=== PATIENT | male | born 1990 | race American Indian/Alaskan Native ===

== ENCOUNTER 2017-01-28 09:20 | Emergency (ER) | payer OTHER ==
[2017-01-28 09:53] VITALS: BP 121/82
--- NOTE | 2017-01-28 11:42 | Emergency Department Report ---
HPI - General Chief Complaint: Extremity Problem,Nontraumatic Time Seen by Provider: 01/28/17 11:29 - HPI HPI: Patient here said that he woke up this morning with right foot pain located big toe at back and front is still radiating to the bottom of his right foot. She reports that it is swollen and red and pain is 10 out of 10, throbbing and achy . He denies any injury to side. Denies any history of gout or any other medical problems except asthma. She said she came to the emergency room and he did not take any [id number] medication. Denies any fever or chills. Denies any radiation of pain up his right extremity to ankle or leg. Pain is worse with movement and with touch better with resting. ED Past Medical Hx - Past Medical History Previous Medical History?: Yes Hx Asthma: Yes - Surgical History Past Surgical History?: No - Family History Family history: hypertension - Social History Smoking Status: Current Every Day Smoker Substance Use Type: Alcohol - Medications Home Medications: Home Medications Medication Instructions Recorded Confirmed Last Taken Type Bacitracin Zinc Oint 1 applicatio TP TID #1 tube 01/13/15 Unknown Rx Sulfamethoxazole/Trimethoprim 1 each PO BID #14 tablet 01/13/15 Unknown Rx [Bactrim DS TAB] Acetaminophen/Codeine [Tylenol 1 tab PO Q6H PRN #12 tab 07/10/15 Unknown Rx /Codeine # 3 tab] Amoxicillin/K Clav Tab [Augmentin 1 tab PO Q12HR #20 tab 07/10/15 Unknown Rx 875MG TAB] Acetaminophen/Codeine [Tylenol 1 tab PO Q6H PRN 3 Days #12 tab 01/28/17 Unknown Rx /Codeine # 3 tab] Ibuprofen [Motrin 800 MG tab] 800 mg PO Q8HR PRN 5 Days #15 01/28/17 Unknown Rx tablet methylPREDNISolone [Medrol] 4 mg PO QAM 6 Days #1 tab.ds.pk 01/28/17 Unknown Rx ED Review of Systems ROS: Stated complaint: RIGHT FOOT SWOLLEN Other details as noted in HPI Comment: All other systems reviewed and negative Constitutional: no symptoms reported Respiratory: no symptoms reported Cardiovascular: denies: chest pain, palpitations, dyspnea on exertion, edema, syncope, paroxysmal nocturnal dyspnea Gastrointestinal: denies: abdominal pain, nausea, vomiting, diarrhea Musculoskeletal: joint swelling, arthralgia. denies: back pain, myalgia Neurological: denies: headache, weakness, numbness, paresthesias, confusion, abnormal gait, vertigo Physical Exam - Physical Exam Vital Signs: Vital Signs 01/28/17 09:51 Temperature 98.4 F Pulse Rate 77 Respiratory 16 Rate Blood Pressure 121/82 O2 Sat by Pulse 99 Oximetry General: This is a 26-year-old male well-nourished well-developed no acute distress Physical Exam: Head: Normocephalic, atraumatic, no abrasion, no bruising and no contusion. Eyes: Biateral pupils equal and reactive to light, bilateral EOM intact.. Bilateral conjunctival and sclera without injection, normal accommodation. No nystagmus Neck: Supple, No Cervical adenopathy, full range of motion and no C-spine tenderness. Full range of motion. No swelling or tracheal deviation normal reflexes Cardiovascular: S1, S2. Regular rate and rhythm. No murmur. Capillary refill is less then 3 seconds. Lungs: Clear to auscultate bilaterally. No rhonchi, wheezes or rales. No chest wall tenderness. No chest contusion. No bruising to chest. Abdomen: Non-tender to palpate in all quadrants, no guarding or rebound tenderness, positive bowel sounds in all quadrants. No CVA tenderness. No hernia, bruit or mass. No rigidity or distention. Extremities: No clubbing, cyanosis or edema. +2 pulses. No neurovascular compromise. Patient with swelling to right great toe, mild erythema and tenderness to palpate. He is able to move his toes but reports very painful when he moves his right great toe. Swelling is localized to the right great toe. No laceration, abrasion, contusion or ecchymotic area noted to right foot. Skin: Clean, dry and intact. No rash or lesions. Neurological: GCS at 15, Pt is alert and oriented 3 speech is clear period. Bilateral hand continuity coordinator strong and equal. Normal gait. Negative Romberg and no pronator drift. Normal Reflexes. No motor or sensory deficit Back: No vertebral tenderness, no paraspinal tenderness. The bend over and touch his toes without any difficulties. Ambulates without any difficulties. Psych: Normal mood and behavior ED Course Vital Signs 01/28/17 09:51 Temperature 98.4 F Pulse Rate 77 Respiratory 16 Rate Blood Pressure 121/82 O2 Sat by Pulse 99 Oximetry - Reevaluation(s) Reevaluation #1: 01/28/17 12:24 Given Deltasone 60 mg by mouth, Motrin 800 mg by mouth and [place] 5/325 2 tablets emergency room for acute gout flare ED Medical Decision Making - Medical Decision Making ED course: Patient presents to emergency room with right great toe swelling, redness, pain and physical findings patient has been redness swelling and tenderness to right great toe. He has normal pedal pulses and both feet, ankles and legs with normal exam. I discussed the patient that he has gout flare which is a form of arthritis and can be induced by eating certain foods. I explained to him food that he should avoid. This is patient initial gout flare. Based on his diet over 48 hour period, patient had crab legs, beer, red meat and he said he consumes a lot of beer and seafood over the . Patient does have gout that rendered his family. I discussed with him that he needs to follow-up with primary care physician for gout and if he didn't have a primary care physician he can follow up at [facility]. Patient received [place] 5/325 2 tablets, Motrin 800 mg and Deltasone 60 mg when necessary emergency room which helped his pain. Patient discharged home a prescription for prednisone, Motrin and Tylenol 3. Discharged from emergency room with his family member. Critical care attestation.: If time is entered above; I have spent that time in minutes in the direct care of this critically ill patient, excluding procedure time. ED Disposition Clinical Impression: Gouty arthritis of right great toe, Toe pain, right Disposition: DC-01 TO HOME OR SELFCARE Is pt being admited?: No Does the pt Need Aspirin: No Condition: Stable Instructions: Arthralgia (ED), Acute Gouty Arthritis (ED), Low Purine Diet (ED) Additional Instructions: Please follow up with primary care as recommended he do not have a primary care physician follow-up at [facility]. Call to schedule an appointment Increase fluid intake Take medication as prescribed . please do not drive or operate heavy machinery while taking Tylenol 3 as this medication causes drowsiness Further discharge instruction on low purine diet Please keep affected area clean and dry Prescriptions: Acetaminophen/Codeine [Tylenol /Codeine # 3 tab] 1 tab PO Q6H PRN 3 Days #12 tab PRN Reason: Pain , Severe (7-10) Ibuprofen [Motrin 800 MG tab] 800 mg PO Q8HR PRN 5 Days #15 tablet PRN Reason: Pain , Severe (7-10) methylPREDNISolone [Medrol] 4 mg PO QAM 6 Days #1 tab.ds.pk Referrals: PRIMARY CARE, [Primary Care Provider] - 01/30/17 [facility] [place] [Outside] - 01/30/17 Forms: Accompanied Note, Work/School Release Form(ED)
[2017-01-28] MEDS ORDERED: NORCO 5/325 PO ONE (11:43)
[2017-01-28] MEDS ORDERED: DELTASONE PO ONE (11:43)
[2017-01-28] MEDS ORDERED: MOTRIN PO ONE (11:43)
== END 2017-01-28 13:06 | disposition home or self-care (01) ==
LOC: ED 09:20
DX: M10.9 Gout, unspecified (principal); M19.071 Primary osteoarthritis, right ankle and foot; F17.200 Nicotine dependence, unspecified, uncomplicated
CPT/HCPCS: 99282; J7512

== ENCOUNTER 2020-01-24 10:04 | Emergency (ER) | payer SELFPAY ==
[2020-01-24 10:18] VITALS: BP 148/85
--- NOTE | 2020-01-24 10:56 | Event Note ---
ED Screening Note ED Screening Note: states he had one episode of bright red blood when he wiped states he has abdominal cramping no n/v no fever PMHx gout, asthma no allergies to meds +tobacco +ETOH, every day liquor and beer This initial assessment/diagnostic orders/clinical plan/treatment(s) is/are subject to change based on patients health status, clinical progression and re- assessment by fellow clinical providers in the ED. Further treatment and workup at subsequent clinical providers discretion. Patient/guardian urged not to elope from the ED as their condition may be serious if not clinically assessed and managed. Initial orders include: labs, UA
[2020-01-24 11:16] LABS: Basophils % (Auto) 0.5 % (0.0-1.8); Eosinophils # (Auto) 0.1 K/mm3 (0.0-0.4); Eosinophils % (Auto) 1.5 % (0.0-4.3); Hematocrit 45.4 % (35.5-45.6); Hemoglobin 15.7 gm/dl (11.8-15.2); Lymphocytes # (Auto) 1.9 K/mm3 (1.2-5.4); Lymphocytes % (Auto) 22.4 % (13.4-35.0); Mean Corpuscular HGB Conc 35 % (32-34); Mean Corpuscular Volume 95 fl (84-94); Monocytes # (Auto) 0.7 K/mm3 (0.0-0.8); Platelet Count 323 K/mm3 (140-440); Red Blood Count 4.78 M/mm3 (3.65-5.03); Red Cell Distribution Width 13.7 % (13.2-15.2)
[2020-01-24 11:38] LABS: Alanine Aminotransferase 33 units/L (7-56); Albumin 4.5 g/dL (3.9-5); BUN/Creatinine Ratio 7; Blood Urea Nitrogen 8 mg/dL (9-20); Hemolysis Index 8
[2020-01-24] MEDS ORDERED: KETOROLAC 60 MG/2 ML INJ IM ONE (13:54)
--- NOTE | 2020-01-24 14:00 | Emergency Department Report ---
ED GI Bleed HPI - General Chief complaint: Abdominal Pain Stated complaint: BLOOD IN STOOL/ABD PAIN/BLURR VISION Time Seen by Provider: 01/24/20 10:54 Source: patient Mode of arrival: Ambulatory Limitations: No Limitations - History of Present Illness Initial comments: 29 year old male with no significant pmhx presents to ED c/o rectal bleeding. Patient states this occurred last night. He states it was BRBPR. He denies any associated clots, rectal pain, or swelling or itching. He reports associated abdominal pain in LLQ, and RUQ which has been sharp and intermittent in nature. He denies any diarrhea. He states he was not straining with his bowel movement and he denies any hard stools. He denies nausea, vomiting, abdominal distension, fever or chills. He denies similar symptoms in past. He denies rectal intercourse. MD complaint: blood on toilet paper, blood streaked stool -: Sudden (last night) Severity scale (0 -10): 8 - Related Data Previous Rx's Medication Instructions Recorded Last Taken Type Dicyclomine [Bentyl] 10 mg PO QID PRN #40 capsule 01/24/20 Unknown Rx Allergies Allergy/AdvReac Type Severity Reaction Status Date / Time No Known Allergies Allergy Unverified 01/12/15 20:20 ED Review of Systems ROS: Stated complaint: BLOOD IN STOOL/ABD PAIN/BLURR VISION Other details as noted in HPI Comment: All other systems reviewed and negative Constitutional: denies: chills, fever Respiratory: denies: cough, shortness of breath, wheezing Cardiovascular: denies: chest pain, palpitations Gastrointestinal: hematochezia. denies: abdominal pain, nausea, vomiting, diarrhea, constipation, hematemesis, melena Genitourinary: denies: urgency, dysuria Musculoskeletal: denies: back pain, joint swelling, arthralgia Skin: denies: rash, lesions Neurological: denies: headache, weakness, paresthesias Psychiatric: denies: anxiety, depression Hematological/Lymphatic: denies: easy bleeding, easy bruising ED Past Medical Hx - Past Medical History Previous Medical History?: Yes Hx Arthritis: Yes Hx Asthma: Yes - Surgical History Past Surgical History?: No - Social History Smoking Status: Current Every Day Smoker Substance Use Type: None - Medications Home Medications: Home Medications Medication Instructions Recorded Confirmed Last Taken Type Dicyclomine [Bentyl] 10 mg PO QID PRN #40 capsule 01/24/20 Unknown Rx ED Physical Exam - General Limitations: No Limitations General appearance: alert, in no apparent distress - Head Head exam: Present: atraumatic, normocephalic, normal inspection - Eye Eye exam: Present: normal appearance, PERRL, EOMI Pupils: Present: normal accommodation - ENT ENT exam: Present: normal exam, mucous membranes moist - Respiratory Respiratory exam: Present: normal lung sounds bilaterally. Absent: respiratory distress - Cardiovascular Cardiovascular Exam: Present: regular rate. Absent: normal rhythm, normal heart sounds - GI/Abdominal GI/Abdominal exam: Present: soft, tenderness (mild LLQ, LUQ, EPigastric, RUQ without guarding or rebound) - Rectal Rectal exam: Present: other (PT REFUSED RECTAL EXAM) - Neurological Exam Neurological exam: Present: alert, oriented X3, CN II-XII intact, normal gait - Psychiatric Psychiatric exam: Present: normal affect, normal mood - Skin Skin exam: Present: intact ED Course Vital Signs 01/24/20 10:17 Temperature 98.7 F Pulse Rate 95 H Respiratory 17 Rate Blood Pressure 148/85 [Left] O2 Sat by Pulse 97 Oximetry ED Medical Decision Making - Lab Data Result diagrams: 01/24/20 11:01 01/24/20 11:01 - Radiology Data Radiology results: report reviewed - Medical Decision Making 29-year-old male with no significant past medical history came into the ER complaining of bright red blood per rectum after having a bowel movement last night. He also reported intermittent abdominal pain since last night. Patient refused rectal exam. work-up today shows normal H&H, WBC also normal, chemistries within normal limits, CT abdomen pelvis shows nothing acute. Patient overall is well-appearing, nontoxic, is not in any acute distress, appears well-hydrated, with stable vital signs. No further work-up, admission or consultation indicated at this time. Discussed lab results, and CT results with patient. Recommend that he follows up with the primary care doctor and or GI specialist especially if his symptoms persist but if his symptoms worsens to return to the ER. Patient stable at time of discharge. Critical care attestation.: If time is entered above; I have spent that time in minutes in the direct care of this critically ill patient, excluding procedure time. ED Disposition Clinical Impression: Rectal bleeding, Abdominal pain Disposition: DC- TO HOME OR SELFCARE Is pt being admited?: No Does the pt Need Aspirin: No Condition: Stable Instructions: Rectal Bleeding, [id number] Additional Instructions: I recommend that you follow up with PCP listed on your d/c instructions. You can also f/u with GI specialist listed on your d/c instructions if your symptoms continues. Take medications as prescribed. Return to ED if symptoms worsens or changes. Prescriptions: Dicyclomine [Bentyl] 10 mg PO QID PRN #40 capsule PRN Reason: Abdominal PAin Referrals: PRIMARY CARE, [Primary Care Provider] - 3-5 Days Time of Disposition: 15:15
[2020-01-24 14:11] LABS: Bilirubin,Urine NEG (Negative); Blood,Urine NEG (Negative); Color,Urine Yellow (Yellow); Mucus,Urine 1+ /HPF; Protein,Urine <15 mg/dL mg/dL (Negative)
--- NOTE | 2020-01-24 15:08 | Cat Scan Report ---
CT ABDOMEN AND PELVIS WITHOUT IV CONTRAST INDICATION: abd pain, rectal bleeding. COMPARISON: None available. TECHNIQUE: All CT scans at this facility use dose modulation, automated exposure control, iterative reconstructi on or weight based dosing, when appropriate, to reduce radiation dose to as low as reasonably achieva ble. FINDINGS: Lung Bases: No significant abnormality. Skeletal System: No acute abnormality. ABDOMEN: Liver: No significant abnormality. Gallbladder: No significant abnormality. Bile Ducts: No significant abnormality. Pancreas: No significant abnormality. Spleen: No significant abnormality. Adrenals: No significant abnormality. Right Kidney: No significant abnormality. Left Kidney: No significant abnormality. Upper GI tract: No significant abnormality. Lymph Nodes: No significant adenopathy. Aorta: No significant abnormality. Additional Findings: There is a tiny fat-containing supraumbilical ventral hernia. There is also a ti ny umbilical ventral hernia. PELVIS: Colon: No acute abnormality. Urinary Bladder and Distal Ureters: No significant abnormality. Appendix: No significant abnormality. Lymph Nodes: No significant adenopathy. Additional Findings: None. IMPRESSION: 1. Within the limitations of non contrast technique, no acute process in the abdomen or pelvis. 2. Incidental findings, as above. Signer Name: Babak Venegas MD Signed: 01/24/2020 3:03 PM Workstation Name: [id number]
== END 2020-01-24 15:54 | disposition home or self-care (01) ==
LOC: ED 10:04
DX: K62.5 Hemorrhage of anus and rectum (principal); R10.9 Unspecified abdominal pain; F17.200 Nicotine dependence, unspecified, uncomplicated; J45.909 Unspecified asthma, uncomplicated; M19.90 Unspecified osteoarthritis, unspecified site; Z79.899 Other long term (current) drug therapy
CPT/HCPCS: 36415; 74176; 80053; 81001; 83690; 85025; 96372; 99284; J1885